=== PATIENT | male | born 1935 | race Hispanic/Latino ===

== ENCOUNTER 2017-11-08 07:59 | Day surgery (SDC) | payer OTHER ==
[~2017-11-08] VITALS: Ht 180.3 cm; Wt 81.1 kg
[~2017-11-08 07:59] MED LIST: SODIUM CHLORIDE 0.9% 1000ML 1,000 ML IV ONE
[2017-11-08 08:38] VITALS: BP 127/67
[2017-11-08] MEDS ORDERED: SENN1TAB6 PO (09:08)
[2017-11-08] MEDS ORDERED: BICA50TA7 PO (09:08)
[2017-11-08] MEDS ORDERED: ESOM40CA54 PO (09:08)
[2017-11-08] MEDS ORDERED: ASPI-555 PO (09:08)
[2017-11-08] MEDS ORDERED: LORA0.5T2 PO (09:08)
[2017-11-08] MEDS ORDERED: HYDR-4068 PO (09:08)
[2017-11-08] MEDS ORDERED: TRAZ-187 PO (09:08)
[2017-11-08] MEDS ORDERED: PROPOFOL 10 MG/ML 20ML VIAL IV ONE ×2 (09:25)
[2017-11-08 09:37] VITALS: BP 92/46
== END 2017-11-08 10:10 | disposition home or self-care (01) ==
LOC: DAH 07:59
PROVIDERS: ATTEND Internal Medicine Gastroenterology
DX: K29.50 Unspecified chronic gastritis without bleeding (principal); I10 Essential (primary) hypertension; E78.5 Hyperlipidemia, unspecified; I25.10 Atherosclerotic heart disease of native coronary artery without angina pectoris; M19.90 Unspecified osteoarthritis, unspecified site; F32.9 Major depressive disorder, single episode, unspecified; Z98.890 Other specified postprocedural states; Z85.46 Personal history of malignant neoplasm of prostate
CPT/HCPCS: 43239; 88305; 88312; 93005; A4606; J2704 ×2; J7030

== ENCOUNTER 2019-06-18 09:42 | Emergency (ER) | payer OTHER ==
[~2019-06-18 09:42] MED LIST changes: +ASPI-555 PO; +BICA50TA7 PO; +ESOM40CA54 PO; +HYDR-4068 PO; +LORA0.5T2 PO; +SENN1TAB45 PO; -SODIUM CHLORIDE 0.9% 1000ML 1,000 ML IV ONE; +TRAZ-187 PO
[2019-06-18] MEDS ORDERED: BISACODYL 10 MG SUPP.RECT RC ONE (11:33)
[2019-06-18] MEDS ORDERED: MAGNESIUM CITRATE 296 ML SOLUTION ONE (12:11)
== END 2019-06-18 12:28 | disposition home or self-care (01) ==
LOC: EDH 09:42
DX: K59.00 Constipation, unspecified (principal); I25.10 Atherosclerotic heart disease of native coronary artery without angina pectoris; E11.9 Type 2 diabetes mellitus without complications; E78.00 Pure hypercholesterolemia, unspecified; Z85.46 Personal history of malignant neoplasm of prostate; Z87.891 Personal history of nicotine dependence

== ENCOUNTER 2019-12-27 19:53 | Emergency (ER) | payer OTHER ==
[~2019-12-27 19:53] MED LIST changes: +ABIR250T2 PO; +ACET1TAB12 PO; -ASPI-555 PO; +ATOR40TA69 PO; -BICA50TA7 PO; +BUSP10TA3 PO; -HYDR-4068 PO; +LISI2.5T2 PO; -LORA0.5T2 PO; +PRED5TAB44 PO; -SENN1TAB45 PO; +SERT100T12 PO
[2019-12-27] MEDS ORDERED: SODIUM CHLORIDE 0.9% 1000ML 1,000 ML IV ONE (19:54)
[2019-12-27] MEDS ORDERED: ONDANSETRON HCL 4 MG/2 ML VIAL ONE ×2 (20:17→21:58)
[2019-12-27 20:20] LABS: BASOPHILS % (AUTO) 0.5 % (0.0-5.0); EOSINOPHILS % (AUTO) 0.5 % (0.0-8.0); HEMATOCRIT 33.2 % (42-54); LYMPHOCYTES % (AUTO) 8.7 % (21.0-51.0); MEAN CORPUSCULAR HEMOGLOBIN 28.9 pg (27.0-33.0); MEAN CORPUSCULAR HGB CONC 33.1 g/dL (32.0-36.0); MEAN CORPUSCULAR VOLUME 87.1 fL (79-99); MONOCYTES % (AUTO) 6.7 % (3.0-13.0); NEUTROPHILS % (AUTO) 83.3 % (40.0-77.0); PLATELET COUNT (AUTO) 228 K/uL (130-400); RED BLOOD CELL COUNT(AUTO) 3.81 MIL/uL (4.50-6.20); RED CELL DISTRIBUTION WIDTH 14.2 % (11.0-15.5); WHITE BLOOD COUNT (AUTO) 8.8 K/uL (4.8-10.8)
[2019-12-27 20:32] LABS: CREATININE 1.1 mg/dL (0.5-1.5); POTASSIUM 4.2 mmol/L (3.5-5.1)
[2019-12-27] MEDS ORDERED: FENTANYL CITRATE PF 50 MCG/1 ML 2ML VIAL ONE (20:33)
[2019-12-27 20:35] LABS: INR 0.9 (0.85-1.15); PARTIAL THROMBOPLASTIN TIME 29.4 SEC (26.3-35.5); PROTHROMBIN TIME 9.8 SEC (9.6-11.6)
[2019-12-27 20:37] LABS: ALBUMIN 3.4 g/dL (3.5-5.0); BILIRUBIN,TOTAL 0.3 mg/dL (0.2-1.0); TOTAL PROTEIN, SERUM 6.6 g/dL (6.0-8.3)
[2019-12-27] MEDS ORDERED: MORPHINE SULFATE 4 MG/1ML SYG ONE (21:58)
== END 2019-12-27 22:51 | disposition home or self-care (01) ==
LOC: EDH 19:53
DX: R53.1 Weakness (principal); G89.29 Other chronic pain; J12.89 Other viral pneumonia; C61 Malignant neoplasm of prostate; Z03.818 Encounter for observation for suspected exposure to other biological agents ruled out; I25.10 Atherosclerotic heart disease of native coronary artery without angina pectoris; E11.9 Type 2 diabetes mellitus without complications; E78.00 Pure hypercholesterolemia, unspecified
CPT/HCPCS: 36415; 71045; 74176; 80053; 82550; 84484; 85025; 85610; 85730; 87635; 93005; 96374; 96375; 96376; 99285; J2270; J2405 ×2; J3010; J7030